=== PATIENT | female | born 1995 | race Caucasian/White ===

== ENCOUNTER 2021-02-21 15:52 | Emergency (ER) | payer MEDICAID ==
[~2021-02-21] VITALS: Ht 157.5 cm; Wt 78.0 kg
[2021-02-21 16:31] VITALS: BP 118/68
[2021-02-21 17:16] LABS: BASOPHILS % 0.2 % (0.0-2.0); EOSINOPHILS % 0.1 % (0.0-5.0); HEMATOCRIT. 40.5 % (36.0-48.0); HEMOGLOBIN. 13.5 g/dL (12.0-16.0); LYMPHOCYTES % 14.8 % (20.0-50.0); MEAN CORPUSCULAR HEMOGLOBIN 28.9 pg (28.0-32.0); MEAN CORPUSCULAR VOLUME 86.7 fL (81.0-99.0); MEAN PLATELET VOLUME 9.8 fl (7.4-10.4); MONOCYTES % 7.5 % (2.0-8.0); NEUTROPHILS % 77.4 % (40.0-76.0); PLATELET 227 x1000/uL (130-400); RED BLOOD CELL COUNT 4.68 mill/uL (4.2-5.4); RED CELL DISTRIBUTION WIDTH 13.1 % (11.6-14.6)
[2021-02-21 17:22] LABS: CHLORIDE 102 mEq/L (98-107)
== END 2021-02-21 22:48 | disposition left against medical advice (07) ==
LOC: ER 15:52
DX: Z53.21 Procedure and treatment not carried out due to patient leaving prior to being seen by health care provider (principal); R10.30 Lower abdominal pain, unspecified
CPT/HCPCS: 36415; 80053; 85025